=== PATIENT | male | born 1950 | race Caucasian/White ===

== ENCOUNTER → 2021-11-26 | Outpatient (CLI) | payer MEDICARE ==
[~2021-11-26] MED LIST: AMLO1TAB25; FINA5TAB2; HYDR-3490; LEXA1TAB; MELO15TA28; PANT40TA29; SERT50TA29; TAMS1CAP17
== END ==
LOC: M LABSMTC 11:57
PROVIDERS: ATTEND Anesthesiology
DX: Z01.818 Encounter for other preprocedural examination (principal); Z11.52 Encounter for screening for COVID-19

== ENCOUNTER 2021-11-30 06:09 | Day surgery (SDC) | payer MEDICARE ==
[~2021-11-30] VITALS: Ht 177.8 cm; Wt 69.8 kg
[~2021-11-30 06:09] MED LIST changes: +LIDOCAINE 3.5 % 1ML OPHTH TOPICAL GEL OU ONE
[2021-11-30] MEDS ORDERED: mitoMYcin 0.2 MG/VIAL KIT FOR OPHTHALMIC USE (J7315 PER 0.2MG) As Ordered ONE ×2 (06:42→07:42)
[2021-11-30] MEDS ORDERED: LIDOCAINE 2% W/EPINEPHRINE 20ML VIAL **PRES FREE As Ordered ONE (06:43)
[2021-11-30] MEDS ORDERED: TOBRADEX OPHTH OINT 3.5 GM As Ordered ONE (06:45)
[2021-11-30] MEDS ORDERED: METO100T5 (06:53)
[2021-11-30] MEDS ORDERED: MIDAZOLAM INJ 2MG/2ML VIAL (J2250 PER 1MG) As Ordered ONE (07:49)
[2021-11-30] MEDS ORDERED: fentaNYL 100 MCG/2 ML INJECTION As Ordered ONE (07:49)
[2021-11-30 08:04] VITALS: BP 148/82
== END 2021-11-30 08:51 | disposition home or self-care (01) ==
LOC: M SDC 06:09
PROVIDERS: ATTEND Ophthalmology
DX: H11.002 Unspecified pterygium of left eye (principal); I10 Essential (primary) hypertension; K21.9 Gastro-esophageal reflux disease without esophagitis; N40.0 Benign prostatic hyperplasia without lower urinary tract symptoms; Z79.899 Other long term (current) drug therapy
CPT/HCPCS: 65426; 88302; C1762; J2250; J3010; J7315